=== PATIENT | female | born 2005 | race Caucasian/White ===

== ENCOUNTER 2024-08-14 10:30 | Outpatient (CLI) | payer MEDICAID ==
[2024-08-14] MEDS ORDERED: LR 1,000 ML IV PRN (10:45)
[2024-08-14 11:15] VITALS: BP 130/82; PULSE 78
[2024-08-14 12:00] LABS: COLLECTION METHOD CLEAN CATCH
[2024-08-14 12:04] LABS: MEAN CELL VOLUME 75 fl (80.0-95.0); MEAN CORPUSCULAR HGB CONC 31 g/dl (33.0-37.0); MEAN PLATELET VOLUME 9.1 fl (7.4-10.4); PLATELET COUNT 248 K/mm3 (130-400); RED BLOOD COUNT 3.63 M/mm3 (4.10-5.30); REDCELL DISTRIBUTION WIDTH-CV 14.6 % (11.5-14.5)
[2024-08-14 12:05] LABS: HEMATOCRIT 27.2 % (35.0-45.0); HEMOGLOBIN 8.4 g/dl (12.0-15.0); MEAN CORPUSCULAR HEMOGLOBIN 23 pg (26-32)
[2024-08-14 12:10] LABS: PH 7.5 (5.0-8.5); URINE APPEARANCE CLEAR (CLEAR/HAZY); URINE BLOOD NEGATIVE (NEGATIVE); URINE COLOR YELLOW (YELLOW); URINE GLUCOSE NEGATIVE (NEGATIVE); URINE KETONE TRACE (NEGATIVE); URINE NITRATE NEGATIVE (NEGATIVE); URINE PROTEIN(semi-quant) NEGATIVE (NEGATIVE); URINE UROBILINOGEN 0.2 E.U/dL (0.2-1.0)
[2024-08-14 12:15] VITALS: BP 117/73; PULSE 89
[2024-08-14 12:20] LABS: ALBUMIN 3.1 g/dL (3.5-5.0); BILIRUBIN,TOTAL 0.4 mg/dL (0.2-1.2); CALCIUM 8.9 mg/dL (8.4-10.2); CREATININE, serum 0.59 mg/dL (0.57-1.11); POTASSIUM 3.6 mEq/L (3.5-4.5); TOTAL PROTEIN 6.5 g/dl (6.2-8.1)
[2024-08-14 12:30] LABS: TRICYCLIC ANTIDEPRESS URINE NEGATIVE (NEGATIVE)
--- NOTE | 2024-08-14 12:30 | NUR ---
LATE ENTRY: 1030: PT TO LR3 VIA WHEELCHAIR. PT IS HERE FOR COMPLAINT OF DECREASED MOVEMENT, CONTRACTIONS, "I CHECK MY CERVIX EVERYDAY AND IT IS CHANGING, I CAN GET MY WHOLE FINGER THROUGH IT". PT IS SITTING ON BED SHAKING, HYPERVENTILATING AND CRYING. THE PATIENT IS GIVEN INSTRUCTIONS ON CHANGING INTO CLEAN GOWN AND PROVIDING A URINE CUP FOR CLEAN CATCH FOR UA AND DRUG SCREEN. PT IS UNDERSTANDING AND STATES THAT IT WILL SHOW MARIJUANA BECAUSE SHE USES IT EVERYDAY FOR ANXIETY AND SEIZURES. 1042: PT IS PLACED ON EFM AND TOCO. SVE IS CL/50/-2. DISCUSSION WITH PATIENT REGARDING NOT CHECKING HERSELF AND WHY. THE PATIENT VERBALIZED UNDERSTANDING, HOWEVER STATES "I JUST KNOW WHEN I'M HAVING CONTRACTIONS THAT I FEEL LIKE I AM CHANGING, BUT I DON'T WANT TO COME TO THE
[2024-08-14 12:45] VITALS: BP 131/82; PULSE 86
[2024-08-14] MEDS ORDERED: Terbutaline 1 MG/ML 1 ML AMP SQ ONE (13:45)
[2024-08-14] MEDS ORDERED: Betamethasone Acetate/Na Phos 6 MG/ML 5 ML MDV IM SCH (13:45)
--- NOTE | 2024-08-14 13:45 | NUR ---
REPORT GIVEN TO LAUREN TUBBS. TRANSFERRED CARE OF PATIENT AT THIS TIME.
[2024-08-14 14:15] VITALS: PULSE 94
[2024-08-14] MEDS ORDERED: VISTARIL 2525 MG/CAP PO (14:16)
[2024-08-14] MEDS ORDERED: REMERON 15M15 MG/TA1 PO (14:17)
--- NOTE | 2024-08-14 14:25 | NUR ---
UPON ASSESSMENT, PT ADMITS TO SUICIDAL THOUGHTS OVER THE PAST 3 MONTHS. DENIES ATTEMPTS OR INTENTIONS. STATES "THIS IS NOT NEW AND I HAVE A WHOLE CARE TEAM AND SUPPORT. I AM HERE TODAY BECAUSE I HAD A MANIC EPISODE IN MY DOCTORS OFFICE, THEN STARTED [facility], I FEEL VERY SUPPORTED." FOB AT BEDSIDE, STATES HE FEELS THEY ARE SAFE LEAVING HERE AND HAVE A STRONG SUPPORT SYSTEM.
[2024-08-14 14:45] VITALS: BP 133/76; PULSE 93; TEMP 98.2
--- NOTE | 2024-08-14 14:49 | NUR ---
PER , PT MAY DC HOME, NEEDS TO RETURN TOMORROW FOR REPEAT BETAMETHASONE AT 1415 AND NST. PT EDUCATED ON PLAN OF CARE. AGREEABLE. CALM AND COOPERATIVE AT THIS TIME. NO CONTRACTIONS PALPATED THROUGHOUT THIS ENCOUNTER, PT DENIES FEELING "ANYMORE" CONTRACTIONS. CATEGORY 1 EFM TRACING. MATERNAL VITAL SIGNS STABLE. SEE EMAR FOR MEDICATION ADMINISTRATION AND TIMES. SEE PHYSICIAN NOTIFICATION FOR STATUS UPDATE.
[2024-08-14 15:15] VITALS: BP 131/65; PULSE 99
--- NOTE | 2024-08-14 15:28 | NUR ---
ALL CO PAPERWORK AND FOLLOW UP APPOINTMENTS REVIEWED. PT FULLY AGREEABLE TO RETURN TOMORROW FOR REPEAT STEROID INJECTION AND NST, BUT REQUESTS TO COME AT 1600 SO SHE CAN PICK KIDS UP FROM SCHOOL ON TIME, SHE IS LOW ON FRIEND AND FAMILY SUPPORT RIGHT NOW AND HAS 4 OTHER KIDS LIVING AT HOME. THIS NURSE AGREEABLE AND WILL NOTIFY STAFF OF PT APPOINTMENT TIME TOMORROW. NO FURTHER QUESTION OR CONCERNS AT THIS TIME. PT CALM, SMILING IN AFFECT, AND CONVERSATION APPROPRIATE. TO RETURN SHORTLY TO PICK HER UP AND TAKE HER HOME, HE HAD TO RUN TO [employer] TO [employer]UC[employer] K[employer] FROM SCHOOL.
== END 2024-08-14 16:00 | disposition home or self-care (01) ==
LOC: LDRO 10:30 → LDR 10:40 → LDRO 16:00
PROVIDERS: Student in an Organized Health Care Education/Training Program
DX: O36.8130 Decreased fetal movements, third trimester, not applicable or unspecified (principal); O47.03 False labor before 37 completed weeks of gestation, third trimester; O21.8 Other vomiting complicating pregnancy; Z3A.29 29 weeks gestation of pregnancy
CPT/HCPCS: OP; J0702; J3105; J7120

== ENCOUNTER 2024-08-24 09:46 | Outpatient (CLI) | payer MEDICAID ==
[~2024-08-24] VITALS: Ht 162.6 cm; Wt 52.3 kg
[~2024-08-24 09:46] MED LIST: REMERON 15M15 MG/TA1 PO; VISTARIL 2525 MG/CAP PO
--- NOTE | 2024-08-24 10:00 | NUR ---
*LATE ENTRY* 1000 PT AMBULATORY TO UNIT WITH SPOUSE AND TWO STEP CHILDREN. PT REPORTS CTX "FREQUENTLY." NO LOF, NO VAGINAL BLEEDING, POSITIVE MOVEMENT. EFM CAT 1. VS STABLE. NOTIFIED.
[2024-08-24] MEDS ORDERED: PRENATAL TABLET PO (10:22)
[2024-08-24] MEDS ORDERED: FLEXERIL 1010 MG/TAB PO (10:22)
[2024-08-24] MEDS ORDERED: VITAMIN D31000 I1 PO (10:23)
[2024-08-24] MEDS ORDERED: ALBUTEROL S0.4 MG/ML PO (10:23)
[2024-08-24] MEDS ORDERED: LR 1,000 ML IV PRN (10:30)
--- NOTE | 2024-08-24 10:50 | NUR ---
RN AT BEDSIDE, PT REPORTS "SOMETHING COMING OUT OF VAGINA," RN LOOKED AND NOTED GEL FROM EXAM, DISCUSSED WITH PT AND PT STATED SHE UNDERSTOOD. PT REPORTED SHE DID NOT FEEL A POP OR TRICKLE OF FLUID AND THE "WETNESS" STARTED AFTER SVE. PT REPORTS SHE HAS NOT NOTICED HER CTX IN THE LAST 30 MINUTES BECAUSE SHE IS SO USED TO HAVING THEM. RN NOTIFIED PT THAT WE HAVE NOT PICKED UP MANY CTX AND WILL BE SENDING HER HOME. PT SAID "OK."
[2024-08-24 11:05] VITALS: BP 125/72; PULSE 95; TEMP 98
--- NOTE | 2024-08-24 11:10 | NUR ---
DC INSTRUCTIONS REVIEWED. PT AGREES. EDUCATION PACKET GIVEN.
== END 2024-08-24 11:10 | disposition home or self-care (01) ==
LOC: LDRO 09:46 → LDR 10:24 → LDRO 11:10 → LDR 15:41 → LDRO 15:41
DX: Z34.93 Encounter for supervision of normal pregnancy, unspecified, third trimester (principal); Z3A.30 30 weeks gestation of pregnancy
CPT/HCPCS: OP